=== PATIENT | female | born 1985 | race Caucasian/White ===

== ENCOUNTER 2021-05-29 06:19 | Emergency (ER) | payer MEDICAID ==
[~2021-05-29] VITALS: Ht 167.6 cm; Wt 88.5 kg
[2021-05-29 06:47] VITALS: BP 134/91
[2021-05-29] MEDS ORDERED: HYDROcodone/APAP 5/325 MG 1 TAB TAB PO ONE (07:00)
--- NOTE | 2021-05-29 07:06 | NUR ---
LEG PAIN X1YR. PT STATES PAIN IS [id number]. PT REPORTS STINGING IN CHEST, COMES AND GOES. HX:PSORIASIS RX:HUMIRA INJ DENIES ALLERGIES
--- NOTE | 2021-05-29 07:08 | NUR ---
PT TAKEN TO RAD.
[2021-05-29 08:18] LABS: BARBITURATE, URINE NEGATIVE ng/ml (NEG <=200); BENZODIAZEPINE, URINE NEGATIVE ng/mL (NEG <=200); CANNABINOID, URINE POSITIVE ng/mL (NEG <=50); COCAINE, URINE NEGATIVE ng/mL (NEG <=300); OPIATE, URINE NEGATIVE ng/mL (NEG <=2000); PHENCYCLIDINE SCREEN,URINE NEGATIVE ng/mL (NEG <=25)
[2021-05-29 09:32] LABS: BASOPHILS % (AUTO) 0.7 % (0.0-2.0); EOSINOPHILS % (AUTO) 0.1 % (0.0-4.0); HEMATOCRIT 42.1 % (36-48); HEMOGLOBIN 13.8 g/dL (12.0-16.0); LYMPHOCYTES # (AUTO) 0.5 K/uL (2.5-16.5); LYMPHOCYTES % (AUTO) 15.7 % (20.5-51.1); MEAN CORPUSCULAR HEMOGLOBIN 30 pg (27-31); MEAN CORPUSCULAR HGB CONC 33 g/dL (33-37); MONOCYTES # (AUTO) 0.9 K/uL (0.8-1.0); NEUTROPHILS % (AUTO) 57.5 % (42.2-75.2); PLATELET COUNT (AUTO) 167 K/uL (140-450); RED BLOOD CELL COUNT(AUTO) 4.67 MIL/uL (4.20-5.40); RED CELL DISTRIBUTION WIDTH 14.2 % (11.6-13.7); WHITE BLOOD COUNT (AUTO) 3.4 K/uL (4.8-10.8)
[2021-05-29 10:12] LABS: CARBON DIOXIDE 22.4 mmol/L (21-32); CREATININE 0.6 mg/dL (0.6-1.3); POTASSIUM 3.4 mmol/L (3.5-5.1)
[2021-05-29 13:31] VITALS: BP 128/84
--- NOTE | 2021-05-29 13:32 | NUR ---
Patient discharged with v/s stable. Written and verbal after care instructions given FOR NONSPECIFIC CHEST PAIN and explained. Patient verbalized understanding. Ambulatory with steady gait. All questions addressed prior to discharge. Advised to follow up with PMD.
== END 2021-05-29 13:32 | disposition home or self-care (01) ==
LOC: MED 06:19
DX: R07.9 Chest pain, unspecified (principal); M79.604 Pain in right leg; M79.605 Pain in left leg
CPT/HCPCS: 36415; 71045; 80048; 80305; 81025; 82550; 84484; 85025; 93005; 93971; 99285; Q0092